=== PATIENT | male | born 1985 | race Caucasian/White ===

== ENCOUNTER 2016-08-14 11:28 | Emergency (ER) | payer OTHER ==
[~2016-08-14] VITALS: Ht 182.9 cm; Wt 134.9 kg
[2016-08-14 13:00] LABS: HEMATOCRIT 44.4 % (38.0-50.0); MCH 29.2 PG (29.0-34.0); MCHC 34.7 G/DL (30.0-36.0); MCV 84.1 FL (86-99); MEAN PLAT.VOLUME 9.7 uM^3 (9.0-12.4); PLATELET COUNT 260 K/uL (156-360); RBC DIS.WIDTH-CV 13.1 % (11.8-14.6); RBC DIS.WIDTH-SD 39.9 % (39-53); RED BLOOD COUNT 5.28 M/uL (4.00-5.50); WHITE BLOOD COUNT 8.1 K/uL (4.1-10.2)
[2016-08-14 13:18] LABS: CHLORIDE 102 mEq/L (99-109); POTASSIUM 3.7 mEq/L (3.7-5.4); SODIUM 138 mEq/L (136-147)
[2016-08-14 13:21] LABS: GLUCOSE 106 mg/dL (70-99)
[2016-08-14 13:22] LABS: ANION GAP 11 MEQ/L (2-14)
[2016-08-14 13:23] LABS: TOTAL BILIRUBIN 1.8 mg/dL (0.0-1.0)
[2016-08-14 13:24] LABS: ALKALINE PHOSPHATASE 136 IU/L (3-129); GFR ESTIMATE (CALCULATED) > 59 mL/min/
[2016-08-14 13:25] LABS: UREA NITROGEN (BUN) 6 mg/dL (9-23)
[2016-08-14 13:31] LABS: ADD MIUA? NO; BILIRUBIN NEGATIVE; BLOOD NEGATIVE; COLOR YELLOW ((YELLOW)); GLUCOSE (STRIP) NEGATIVE; KETONES 5; LEUKOCYTES NEGATIVE; NITRITE NEGATIVE; PROTEIN (STRIP) NEGATIVE; SPECIFIC GRAVITY 1.006 (1.000-1.030); UCUL ADDED? NO; UROBILINOGEN 0.2 MG/DL (0.2-1.0)
[2016-08-14] MEDS ORDERED: ZANTAC150 MG PO (14:54)
[2016-08-14 15:09] VITALS: BP 142/89
== END 2016-08-14 15:10 | disposition home or self-care (01) ==
LOC: EME 11:28
DX: K29.70 Gastritis, unspecified, without bleeding (principal); J02.9 Acute pharyngitis, unspecified
CPT/HCPCS: 71020; 76705; 80053; 81003; 85027; 99281; 99284

== ENCOUNTER 2016-11-14 14:24 | Emergency (ER) | payer OTHER ==
[~2016-11-14] VITALS: Ht 185.4 cm; Wt 127.7 kg
[~2016-11-14 14:24] MED LIST: ZANTAC150 MG PO
[2016-11-14] MEDS ORDERED: ARIPIPRAZOLE10 MG PO (14:48)
[2016-11-14] MEDS ORDERED: CLONIDINE HCL0.1 MG PO (14:49)
[2016-11-14] MEDS ORDERED: LORATADINE10 M2 PO (14:49)
[2016-11-14 15:46] LABS: HEMATOCRIT 45.5 % (38.0-50.0); MCH 29.6 PG (29.0-34.0); MCHC 34.7 G/DL (30.0-36.0); MCV 85.4 FL (86-99); MEAN PLAT.VOLUME 8.9 uM^3 (9.0-12.4); PLATELET COUNT 261 K/uL (156-360); RBC DIS.WIDTH-CV 14.7 % (11.8-14.6); RBC DIS.WIDTH-SD 45.6 % (39-53); RED BLOOD COUNT 5.33 M/uL (4.00-5.50)
[2016-11-14 16:12] LABS: ANION GAP 13 MEQ/L (2-14); CHLORIDE 103 MEQ/L (99-109); GFR ESTIMATE (CALCULATED) > 59 mL/min/; GLUCOSE 116 mg/dL (70-99); POTASSIUM 3.5 MEQ/L (3.7-5.4); SAMPLE HEMOLYSIS CHECK 0; SAMPLE ICTERIC CHECK 0; SAMPLE LIPEMIA CHECK 0; SERUM ETHYL ALCOHOL 264 mg/dL; SODIUM 142 MEQ/L (136-147); UREA NITROGEN (BUN) 12 mg/dL (9-23)
[2016-11-14] MEDS ORDERED: LIBRIUM25 MG PO (17:42)
[2016-11-14 18:14] VITALS: BP 132/81
== END 2016-11-14 18:15 | disposition home or self-care (01) ==
LOC: EME 14:24
PROVIDERS: Emergency Medicine
DX: F10.239 Alcohol dependence with withdrawal, unspecified (principal); K21.9 Gastro-esophageal reflux disease without esophagitis
CPT/HCPCS: 80048; 85027; 99281; 99284; G0480; J3360; J7030

== ENCOUNTER 2017-03-22 12:20 | Inpatient (IN) | payer OTHER ==
[~2017-03-22] VITALS: Ht 185.4 cm; Wt 123.0 kg
[~2017-03-22 12:20] MED LIST changes: +ARIPIPRAZOLE10 MG PO; +CLONIDINE HCL0.1 MG PO; +LIBRIUM25 MG PO; +LORATADINE10 M2 PO
[2017-03-22 13:38] LABS: EOSINOPHIL (%) 0.2 % (0-5); IMMATURE GRANULOCYTE (%) 0.5 % (0.0-0.7); IMMATURE GRANULOCYTE COUNT 0.1 K/uL; LYMPHOCYTE COUNT 1.9 K/uL (1.0-2.8); MCH 29.9 PG (29.0-34.0); MEAN PLAT.VOLUME 8.9 uM^3 (9.0-12.4); MONOCYTE (%) 7.2 % (3-12); MONOCYTE COUNT 0.8 K/uL (0-0.8); NEUTROPHIL (%) 73.8 % (45-76); PLATELET COUNT 341 K/uL (156-360); RBC DIS.WIDTH-CV 14.3 % (11.8-14.6); RBC DIS.WIDTH-SD 42.3 % (39-53); RED BLOOD COUNT 5.66 M/uL (4.00-5.50); WHITE BLOOD COUNT 10.8 K/uL (4.1-10.2)
[2017-03-22 13:45] LABS: POINT-OF-CARE METER ID UU13113702
[2017-03-22 13:46] LABS: CHLORIDE 98 mEq/L (99-109); POTASSIUM 3.5 mEq/L (3.7-5.4); SODIUM 145 mEq/L (136-147)
[2017-03-22 13:49] LABS: GLUCOSE 126 mg/dL (70-99)
[2017-03-22 13:50] LABS: ANION GAP 20 MEQ/L (2-14)
[2017-03-22 13:51] LABS: TOTAL BILIRUBIN 1.4 mg/dL (0.0-1.0)
[2017-03-22 13:52] LABS: SERUM ETHYL ALCOHOL 191 mg/dL
[2017-03-22 13:53] LABS: ALKALINE PHOSPHATASE 156 IU/L (3-129); GFR ESTIMATE (CALCULATED) > 59 mL/min/
[2017-03-22 13:54] LABS: DIRECT BILIRUBIN 0.6 mg/dL (0.0-0.3)
[2017-03-22 13:55] LABS: UREA NITROGEN (BUN) 13 mg/dL (9-23)
[2017-03-22 13:56] LABS: SALICYLATE < 5.0 MG/DL (15-30)
[2017-03-22 15:04] LABS: AMPHETAMINE NEGATIVE (500 ng/mL); BARBITURATES NEGATIVE (200 ng/mL); BENZODIAZEPINES NEGATIVE (150 ng/mL); COCAINE NEGATIVE (150 ng/mL); INTERNAL CONTROLS VALID? YES; METHADONE NEGATIVE (200 ng/mL); METHAMPHETAMINE NEGATIVE (500 ng/mL); OPIATES (MORPHINE) NEGATIVE (100 ng/mL); OXYCODONE NEGATIVE (100 ng/mL); PHENCYCLIDINE NEGATIVE (25 ng/mL); PROPOXYPHENE NEGATIVE (300 ng/mL); THC CANNABINOIDS NEGATIVE (50 ng/mL); TRICYCLIC ANTIDEPRESSANTS NEGATIVE (300 ng/mL)
[2017-03-22 16:25] LABS: HEMATOCRIT 42.9 % (38.0-50.0); MCH 30.5 PG (29.0-34.0); MCHC 36.6 G/DL (30.0-36.0); MCV 83.3 FL (86-99); MEAN PLAT.VOLUME 8.9 uM^3 (9.0-12.4); PLATELET COUNT 253 K/uL (156-360); RBC DIS.WIDTH-CV 14.3 % (11.8-14.6); RBC DIS.WIDTH-SD 42.5 % (39-53); RED BLOOD COUNT 5.15 M/uL (4.00-5.50); WHITE BLOOD COUNT 12.1 K/uL (4.1-10.2)
[2017-03-22 16:37] LABS: CHLORIDE 102 mEq/L (99-109); POTASSIUM 3.6 mEq/L (3.7-5.4); SODIUM 141 mEq/L (136-147)
[2017-03-22 16:39] LABS: GLUCOSE 106 mg/dL (70-99)
[2017-03-22 16:40] LABS: ANION GAP 14 MEQ/L (2-14)
[2017-03-22 16:42] LABS: SERUM ETHYL ALCOHOL 108 mg/dL; TOTAL BILIRUBIN 1.7 mg/dL (0.0-1.0)
[2017-03-22 16:43] LABS: ALKALINE PHOSPHATASE 139 IU/L (3-129); GFR ESTIMATE (CALCULATED) > 59 mL/min/
[2017-03-22 16:44] LABS: UREA NITROGEN (BUN) 11 mg/dL (9-23)
[2017-03-22 18:33] VITALS: BP 144/85
[2017-03-23] VITALS (7 sets, daily range): BP systolic 129–156; BP diastolic 70–93
[2017-03-23 07:37] LABS: ALKALINE PHOSPHATASE 115 IU/L (3-129); ANION GAP 11 MEQ/L (2-14); CHLORIDE 101 MEQ/L (99-109); GFR ESTIMATE (CALCULATED) > 59 mL/min/; GLUCOSE 100 mg/dL (70-99); POTASSIUM 3.4 MEQ/L (3.7-5.4); SAMPLE HEMOLYSIS CHECK 0; SAMPLE ICTERIC CHECK 1; SAMPLE LIPEMIA CHECK 0; SODIUM 140 MEQ/L (136-147); TOTAL BILIRUBIN 2.8 MG/DL (0.0-1.0); UREA NITROGEN (BUN) 12 mg/dL (9-23)
[2017-03-23 07:38] LABS: HEMATOCRIT 41.7 % (38.0-50.0); MCH 29.8 PG (29.0-34.0); MCHC 34.8 G/DL (30.0-36.0); MCV 85.6 FL (86-99); RBC DIS.WIDTH-CV 14.3 % (11.8-14.6); RBC DIS.WIDTH-SD 43.8 % (39-53); RED BLOOD COUNT 4.87 M/uL (4.00-5.50); WHITE BLOOD COUNT 5.5 K/uL (4.1-10.2)
[2017-03-23 08:06] LABS: MEAN PLAT.VOLUME 9.4 uM^3 (9.0-12.4)
[2017-03-23 08:07] LABS: PLATELET COUNT 166 K/uL (156-360)
[2017-03-24 03:36] VITALS: BP 144/88
[2017-03-24 07:30] VITALS: BP 150/91
== END 2017-03-24 13:02 | disposition home or self-care (01) | DRG 897 ==
LOC: EME 12:20 → EDOF 16:33 → 5SOUTH 16:33 → ENRESERV 16:34 → 5SOUTH 18:11 → ENPENDDIS 03-24 → 5SOUTH 03-24 13:02
PROVIDERS: Emergency Medicine; Nurse Practitioner Family
PROC: HZ2ZZZZ Detoxification Services for Substance Abuse Treatment (ICD-10-PCS; principal; 2017-03-22)
DX: F10.239 Alcohol dependence with withdrawal, unspecified (principal); Y90.6 Blood alcohol level of 120-199 mg/100 ml; E86.0 Dehydration; I10 Essential (primary) hypertension; F41.9 Anxiety disorder, unspecified; F17.210 Nicotine dependence, cigarettes, uncomplicated; K21.9 Gastro-esophageal reflux disease without esophagitis; E66.9 Obesity, unspecified; R00.0 Tachycardia, unspecified; Z91.14 Patient's other noncompliance with medication regimen; Z68.35 Body mass index [BMI] 35.0-35.9, adult; Z81.4 Family history of other substance abuse and dependence; Z56.0 Unemployment, unspecified
CPT/HCPCS: 80048; 80053; 80076; 82948; 83735; 85025; 85027; 99281; 99285; G0480; J2060; J3411; J7030